=== PATIENT | female | born 1960 | race Caucasian/White ===

== ENCOUNTER 2016-11-11 08:45 | Outpatient (CLI) | payer MEDICAID | END 2016-11-11 08:47 | LOC: D.MAMMO 08:45 | DX: Z12.31 Encounter for screening mammogram for malignant neoplasm of breast (principal) ==

== ENCOUNTER → 2016-12-17 10:45 | Outpatient (CLI) | payer MEDICAID | END | disposition home or self-care (01) | LOC: D.US 11-20 10:00 | DX: R92.8 Other abnormal and inconclusive findings on diagnostic imaging of breast (principal) ==